=== PATIENT | female | born 1995 | race Caucasian/White ===

== ENCOUNTER 2016-12-11 10:52 | Emergency (ER) | payer OTHER ==
[2016-12-11 12:05] VITALS: BP 101/56
--- NOTE | 2016-12-11 12:44 | UC ---
Throat Pain/Nasal Walker HPI - HPI Summary HPI Summary: Lareg swollen tonsills, dysphagia for a few days, afebrile - History of Current Complaint Chief Complaint: UCGeneralIllness Stated Complaint: SORE THROAT Time Seen by Provider: 12/11/16 12:15 Hx Obtained From: Patient Hx Last Menstrual Period: "Like, a month ago" ?: No Onset/Duration: Sudden Onset, Lasting Days Severity: Moderate Associated Signs & Symptoms: Positive: Dysphagia, Hoarseness - Allergies/Home Medications Allergies/Adverse Reactions: Allergies Allergy/AdvReac Type Severity Reaction Status Date / Time Azithromycin [From Zithromax] Allergy Hives Verified 12/11/16 12:01 Home Medications: Home Medications GuaiFENesin DM* [Robitussin DM*] 10 ml PO Q4H PRN 12/11/16 [History Confirmed ] PMH/Surg Hx/FS Hx/Imm Hx Previously Healthy: Yes - Surgical History Surgical History: None - Family History Known Family History: Positive: Hypertension - Social History Alcohol Use: Weekly Substance Use Type: None Smoking Status (MU): Never Smoked Tobacco - Immunization History Most Recent Influenza Vaccination: Not the Season Review of Systems Constitutional: Negative Skin: Negative Eyes: Negative ENT: Sore Throat Respiratory: Negative Cardiovascular: Negative Gastrointestinal: Negative Genitourinary: Negative Motor: Negative Neurovascular: Negative Musculoskeletal: Negative Neurological: Negative Psychological: Negative Is Patient Immunocompromised?: No All Other Systems Reviewed And Are Negative: Yes Physical Exam Triage Information Reviewed: Yes Appearance: Well-Appearing, Well-Nourished, Pain Distress Vital Signs: Initial Vital Signs Temp 98.3 F 12/11/16 12:00 Pulse 88 12/11/16 12:00 Resp 16 12/11/16 12:00 BP 101/56 12/11/16 12:00 Pulse Ox 100 12/11/16 12:00 Vital Signs Reviewed: Yes Eye Exam: Normal ENT: Positive: Pharyngeal erythema, TMs normal, Tonsillar swelling - +3 Dental Exam: Normal Neck exam: Normal Respiratory Exam: Normal Respiratory: Positive: Chest non-tender, Lungs clear, Normal breath sounds Cardiovascular Exam: Normal Cardiovascular: Positive: RRR, No Murmur, Pulses Normal Abdominal Exam: Normal Abdomen Description: Positive: Nontender, No Organomegaly, Soft Bowel Sounds: Positive: Present Musculoskeletal Exam: Normal Musculoskeletal: Positive: Strength Intact, ROM Intact, No Edema Neurological Exam: Normal Neurological: Positive: Alert, Muscle Tone Normal Psychological Exam: Normal Skin Exam: Normal Throat Pain/Nasal Course/Dx - Course Course Of Treatment: hx obtained, exam performed ,meds reviewed, treated for tonsillitis - Differential Dx/Diagnosis Differential Diagnosis/HQI/PQRI: Otitis Media, Pharyngitis, Tonsillitis Provider Diagnoses: Tonsillitis Discharge - Discharge Plan Condition: Stable Disposition: HOME Prescriptions: predniSONE TAB* [Deltasone TAB*] 20 mg PO DAILY #16 tab Patient Education Materials: Tonsillitis (ED) Additional Instructions: 1. take the medication as prescribed 2. INcrease fluid intake and get plenty of rest.
== END 2016-12-11 13:06 | disposition home or self-care (01) ==
LOC: UCCORT 10:52
DX: J03.90 Acute tonsillitis, unspecified (principal); Z88.1 Allergy status to other antibiotic agents
CPT/HCPCS: 87651; 99212; G0463

== ENCOUNTER 2017-01-22 12:18 | Emergency (ER) | payer OTHER ==
[2017-01-22 12:27] VITALS: BP 125/66
--- NOTE | 2017-01-22 13:01 | UC ---
Cardiac HPI - HPI Summary HPI Summary: Per manager building "c/o dull chest pain x 2 days. History of PE, and feels like it is that again. States started coughing today. " Sx started 01/19. dull mid strenal chest pain that has progressed and has not resolved at all. she has been using the alb "a lot" since then w/o much relief. states that it doesnt feel like previous asthma hx, never had pain w/ asthma in past. It feels just like previous PEs. no syncope. prev PE was Freshman yr of college. reports that genetic workup after was neg. was deemed to be d/t prolonged traveling in past. she admits that she has been traveling a lot over the past few weeks to [facility]. she is not on AC. she is not on OCP. no swelling in legs. - History of Current Complaint Chief Complaint: UCRespiratory Stated Complaint: CHEST PAIN Time Seen by Provider: 01/22/17 12:51 Hx Last Menstrual Period: 01/11/17 - Allergy/Home Medications Allergies/Adverse Reactions: Allergies Allergy/AdvReac Type Severity Reaction Status Date / Time Azithromycin [From Zithromax] Allergy Hives Verified 01/22/17 12:21 Home Medications: Home Medications Albuterol HFA INHALER* [Ventolin HFA Inhaler*] 2 puff INH Q6H PRN 01/22/17 [ History Confirmed 01/22/17] Budesonide Flexhaler 90 (NF) [Pulmicort Flexhaler 90 mcg/act (NF)] 2 puff INH BID 01/22/17 [History Confirmed 01/22/17] Montelukast Sodium TAB* [Singulair 10 MG TAB*] 10 mg PO DAILY 01/22/17 [History Confirmed 01/22/17] PMH/Surg Hx/FS Hx/Imm Hx Previously Healthy: Yes Respiratory History: Asthma - Surgical History Surgical History: None - Family History Known Family History: Positive: Hypertension, Other - no PE history - Social History Alcohol Use: Occasionally Substance Use Type: None Smoking Status (MU): Never Smoked Tobacco - Immunization History Most Recent Influenza Vaccination: Not the 2016/2017 Season Review of Systems Constitutional: Negative Skin: Negative Eyes: Negative ENT: Negative Respiratory: Negative Cardiovascular: Chest Pain Gastrointestinal: Negative Genitourinary: Negative Motor: Negative Neurovascular: Negative Musculoskeletal: Negative Neurological: Negative Psychological: Negative Is Patient Immunocompromised?: No All Other Systems Reviewed And Are Negative: Yes Physical Exam Triage Information Reviewed: Yes Appearance: Well-Appearing, No Pain Distress, Well-Nourished Vital Signs: Initial Vital Signs Temp 99 F 01/22/17 12:22 Pulse 98 01/22/17 12:22 Resp 18 01/22/17 12:22 BP 125/66 01/22/17 12:22 Pulse Ox 99 01/22/17 12:22 Vital Signs Reviewed: Yes Eye Exam: Normal ENT Exam: Normal ENT: Positive: Pharynx normal, Pharyngeal erythema Dental Exam: Normal Neck exam: Normal Neck: Positive: Supple, Nontender, No Lymphadenopathy Respiratory Exam: Normal Respiratory: Positive: Lungs clear, Normal breath sounds, No respiratory distress, No accessory muscle use. Negative: Crackles, Rhonchi, Stridor, Wheezing Cardiovascular Exam: Normal Cardiovascular: Positive: RRR, No Murmur, Pulses Normal, Brisk Capillary Refill Abdominal Exam: Normal Abdomen Description: Positive: Nontender, Soft Musculoskeletal Exam: Normal Neurological Exam: Normal Psychological Exam: Normal Skin Exam: Normal - Assessment/Plan Course Of Treatment: EKG - NSR, nml axis, possible S1Q3, inv T3 (but w/ artifcat ). No AV/IV changes, no ST/T changes. no prev. -refuses ambulance. reviewed and understands risks of MVA, delay of eval and treatment, permanenet disability and , loss of wages. -she has called friend to come take her who has pcikeed her up. discussed risk of her driving w/ these sx also places others at risk. - Differential Diagnoses - Chest Pain Differential Diagnosis/HQI/PQRI: Acute MA, ACS, Pulmonary Embolism - Differential Diagnoses - Palpitations Differential Diagnosis/HQI/PQRI: Pulmonary Embolism - Clinical Impression Provider Diagnoses: chest pain, asthma, suspect PE Discharge - Discharge Plan Condition: Fair Disposition: AGAINST MEDICAL ADVICE Referrals: Non Staff,Doctor [Primary Care Provider] -
== END 2017-01-22 13:00 | disposition left against medical advice (07) ==
LOC: UCCORT 12:18
DX: R07.89 Other chest pain (principal); J45.909 Unspecified asthma, uncomplicated; Z88.1 Allergy status to other antibiotic agents
CPT/HCPCS: 93005; 99212; G0463